=== PATIENT | female | born 1955 | race Caucasian/White ===

== ENCOUNTER 2018-06-27 13:37 | Day surgery (SDC) | payer OTHER ==
[2018-06-27] MEDS ORDERED: PROPOFOL 40 ML (14:48)
[2018-06-27] MEDS ORDERED: LIDOCAINE 2% (SDV) 5 ML INJ (14:48)
== END 2018-06-27 16:47 | disposition home or self-care (01) ==
LOC: GIL 13:37 → SDS 16:47
DX: Z43.1 Encounter for attention to gastrostomy (principal); E11.9 Type 2 diabetes mellitus without complications; Z86.718 Personal history of other venous thrombosis and embolism; Z87.891 Personal history of nicotine dependence; E78.5 Hyperlipidemia, unspecified; Z93.0 Tracheostomy status
CPT/HCPCS: 43239